=== PATIENT | female | born 2000 | race African-American/Black ===

== ENCOUNTER 2021-12-16 10:34 | Emergency (ER) | payer OTHER ==
[2021-12-16] MEDS ORDERED: Acetaminophen 500 MG TAB ONE (11:50)
== END 2021-12-16 12:00 | disposition home or self-care (01) ==
LOC: CSHERS 10:34
DX: S90.32XA Contusion of left foot, initial encounter (principal); W10.9XXA Fall (on) (from) unspecified stairs and steps, initial encounter